=== PATIENT | female | born 1995 | race Caucasian/White ===

== ENCOUNTER 2023-10-25 15:04 | Inpatient (IN) | payer SELFPAY ==
[~2023-10-25] VITALS: Ht 160 cm; Wt 64.9 kg
[2023-10-25 15:41] VITALS: BP 112/67; PULSE 109; RESP 18; TEMP 97.3; O2SAT 100
[2023-10-25 17:10] LABS: BILIRUBIN,URINE NEGATIVE (NEGATIVE); BLOOD, URINE 2+ (NEGATIVE); COLOR,URINE YELLOW (YELLOW); LEUKOCYTE ESTERASE ,URINE TRACE (NEGATIVE); NITRITE, URINE NEGATIVE (NEGATIVE); PROTEIN,URINE NEGATIVE (NEGATIVE); UGLUCOSE NEGATIVE (NEGATIVE); UROBILINOGEN,URINE 0.2 EU/dL (0.2 - 1)
[2023-10-25 17:11] LABS: APPEARANCE,URINE HAZY (CLEAR)
[2023-10-25 17:12] LABS: WBC,URINE 0-5 /HPF (0-5)
[2023-10-25 17:13] LABS: BACTERIA,URINE 2+ /HPF (None Seen); MUCUS,URINE None Seen /LPF (None Seen); SQUAMOUS EPITHELIAL CELL,UR 4-10 (MOD) /LPF (0-3 (FEW))
[2023-10-25 17:31] LABS: BASOPHILS % (AUTO) 0.7 % (0.0-2.0); EOSINOPHILS # (AUTO) 0.1 K/uL (0-0.4); EOSINOPHILS % (AUTO) 1.5 % (0.0-4.0); LYMPHOCYTES # (AUTO) 1.9 K/uL (2.5-16.5); LYMPHOCYTES % (AUTO) 26.2 % (20.5-51.1); MEAN CORPUSCULAR HEMOGLOBIN 20 pg (27-31); MEAN CORPUSCULAR HGB CONC 30 g/dL (33-37); MEAN CORPUSCULAR VOLUME 64.6 fL (80-94); MONOCYTES # (AUTO) 0.5 K/uL (0.8-1.0); MONOCYTES % (AUTO) 6.2 % (1.7-9.3); NEUTROPHILS # (AUTO) 4.8 K/uL (1.8-7.7); NEUTROPHILS % (AUTO) 65.4 % (42.2-75.2); PLATELET COUNT (AUTO) 435 K/uL (140-450); RED BLOOD CELL COUNT(AUTO) 2.41 MIL/uL (4.20-5.40); RED CELL DISTRIBUTION WIDTH 18.3 % (11.6-13.7); WHITE BLOOD COUNT (AUTO) 7.3 K/uL (4.8-10.8)
[2023-10-25 17:33] LABS: HEMATOCRIT 15.6 % (36-48); HEMOGLOBIN 4.7 g/dL (12.0-16.0)
[2023-10-25] MEDS ORDERED: ONDANSETRON 4 MG/2 ML VIAL IVP PRN (17:50)
[2023-10-25] MEDS ORDERED: ALBUTEROL 0.083% 2.5 MG/3 ML NEBU INH PRN (17:50)
[2023-10-25] MEDS ORDERED: ACETAMINOPHEN 325 MG TAB PO PRN (17:50)
[2023-10-25] MEDS: NACL 0.9% 1,000 ML IV SCH (18:20)
[2023-10-25 18:31] LABS: ANION GAP 13.9 (8-16); CALCIUM 8.4 mg/dL (8.5-10.1); CARBON DIOXIDE 25.5 mmol/L (21-32); CREATININE 0.7 mg/dL (0.6-1.3); POTASSIUM 3.4 mmol/L (3.5-5.1)
[2023-10-25 19:43] VITALS: PULSE 96; RESP 19; O2SAT 99
[2023-10-25 20:00] VITALS: PULSE 95; PULSE 99; RESP 18; O2SAT 100
[2023-10-25] MEDS: HYDROcodone/APAP 5/325 MG 1 TAB TAB PO PRN (21:08)
[2023-10-25 23:03] VITALS: O2SAT 99
[2023-10-26] VITALS (8 sets, daily range): BP systolic 92–100; BP diastolic 51–57; PULSE 69–79; RESP 16–18; TEMP 97.8–98.5; O2SAT 96–99
[2023-10-26 06:39] LABS: BASOPHILS # (AUTO) 0.1 K/uL (0.00-0.22); BASOPHILS % (AUTO) 1.3 % (0.0-2.0); EOSINOPHILS # (AUTO) 0.3 K/uL (0-0.4); EOSINOPHILS % (AUTO) 3.5 % (0.0-4.0); HEMATOCRIT 22.4 % (36-48); HEMOGLOBIN 7.1 g/dL (12.0-16.0); LYMPHOCYTES # (AUTO) 2.9 K/uL (2.5-16.5); LYMPHOCYTES % (AUTO) 39.4 % (20.5-51.1); MEAN CORPUSCULAR HEMOGLOBIN 23 pg (27-31); MEAN CORPUSCULAR HGB CONC 32 g/dL (33-37); MONOCYTES # (AUTO) 0.7 K/uL (0.8-1.0); MONOCYTES % (AUTO) 9.3 % (1.7-9.3); NEUTROPHILS # (AUTO) 3.5 K/uL (1.8-7.7); NEUTROPHILS % (AUTO) 46.5 % (42.2-75.2); PLATELET COUNT (AUTO) 364 K/uL (140-450); RED BLOOD CELL COUNT(AUTO) 3.11 MIL/uL (4.20-5.40); RED CELL DISTRIBUTION WIDTH 24.6 % (11.6-13.7); WHITE BLOOD COUNT (AUTO) 7.4 K/uL (4.8-10.8)
[2023-10-26 06:51] LABS: ANION GAP 9.2 (8-16); CALCIUM 8.3 mg/dL (8.5-10.1); CARBON DIOXIDE 28.7 mmol/L (21-32); CREATININE 0.7 mg/dL (0.6-1.3); POTASSIUM 3.9 mmol/L (3.5-5.1)
[2023-10-26] MEDS: medroxyPROGESTERone 10 MG TAB PO SCH (08:32)
[2023-10-26] MEDS ORDERED: MEDR10TA PO ×2 (10:24→10:26)
[2023-10-26] MEDS ORDERED: FERR325E14 PO ×2 (10:24→10:26)
[2023-10-26] MEDS: SODIUM FERRIC GLUCONATE 125 MG in NACL 0.9% 100 ML IV SCH (11:15)
== END 2023-10-26 13:30 | disposition home or self-care (01) | DRG 761 ==
LOC: MED 15:04 → MTU 17:51
PROVIDERS: ADMIT Student in an Organized Health Care Education/Training Program; ATTEND Student in an Organized Health Care Education/Training Program
PROC: 30233N1 Transfusion of Nonautologous Red Blood Cells into Peripheral Vein, Percutaneous Approach (ICD-10-PCS; principal; 2023-10-25)
DX: D25.9 Leiomyoma of uterus, unspecified (principal); N93.9 Abnormal uterine and vaginal bleeding, unspecified; D64.9 Anemia, unspecified
CPT/HCPCS: 36415; 36430; 71045; 76830; 80048; 81001; 85025; 86886; 86900; 86901; 86920; 87081; 87086; 87186; 99285; J2916; P9016; Q0092